=== PATIENT | female | born 1980 | race Hispanic/Latino ===

== ENCOUNTER 2018-11-13 08:42 | Outpatient (CLI) | payer OTHER ==
--- NOTE | 2018-11-13 11:31 | ULT ---
ULTRASOUND PELVIC ULTRASOUND TRANSVAGINAL DOPPLER DUPLEX: 11/13/2018 HISTORY: Enlarged uterus in a 38-year-old female. TECHNIQUE: Transabdominal transducer used to evaluate intrapelvic contents using the urinary bladder as an acous tic window. Endovaginal transducer used to visualize intrapelvic contents in greater detail. Color fl ow Doppler and Pulsed Doppler spectral waveform analysis of ovaries. FINDINGS: Uterus: 10.5 x 5.5 x 8 cm Endometrial stripe: 0.5 cm (5 mm) Right ovary: 2.5 x 2.5 x 1.5 cm Left ovary: 4.5 x 3 x 2.5 cm Uterine leiomyoma (fibroid): Three, all at the right side of the uterus. One of them is 3 x 2.5 x 2 .5 cm, another is 2 x 2 x 2 cm, and the third one is 2 x 2 x 1.4 cm. Blood flow in both ovaries: Demonstrated. Ovarian cyst (defined as 2 cm or greater): A 3 x 2.3 x 2 cm left ovarian cyst. Free fluid in the cul-de-sac: None. IMPRESSION: 1. At least three small uterine fibroids (leiomyomata). 2. A 3 cm left ovarian cyst. ÁLVARO Waterman POS: [facility]
== END 2018-11-13 08:43 | disposition home or self-care (01) ==
LOC: BICULT 08:42
PROVIDERS: ATTEND Family Medicine
DX: N85.2 Hypertrophy of uterus (principal); D25.9 Leiomyoma of uterus, unspecified; N83.202 Unspecified ovarian cyst, left side
CPT/HCPCS: 76856; 93976